=== PATIENT | female | born 2000 | race Two or more races ===

== ENCOUNTER 2024-05-06 12:26 | Emergency (ER) | payer OTHER, SELFPAY ==
[2024-05-06 12:46] VITALS: BP 133/88; PULSE 73; RESP 17; TEMP 37.1; O2SAT 100; BMI 27.1
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
[2024-05-06] MEDS: CIPROFLOXACIN HCL 250 MG TABLET 500 MG PO (13:53)
[2024-05-06] MEDS: IBUPROFEN TAB 400 MG TABLET 800 MG PO (13:53)
[2024-05-06] MEDS: SILVER SULFADIAZINE CR 1% 25 GM TUBE TOP (13:54)
[2024-05-06] MEDS: ACETAMINOPHEN w/COD 300-30 TABLET 2 TAB PO (13:54)
[2024-05-06] MEDS: DIPHTH,PERTUSS(ACELL),TET VAC 0.5 ML VIAL IMi (13:55)
== END 2024-05-06 14:05 | disposition home or self-care (01) ==
LOC: SERX 13:44
PROVIDERS: Emergency Provider Emergency Medicine
DX: T20.20XA Burn of second degree of head, face, and neck, unspecified site, initial encounter (principal); T31.0 Burns involving less than 10% of body surface; T79.9XXA Unspecified early complication of trauma, initial encounter; X10.2XXA Contact with fats and cooking oils, initial encounter; Y93.G3 Activity, cooking and baking; Y92.009 Unspecified place in unspecified non-institutional (private) residence as the place of occurrence of the external cause; Z23 Encounter for immunization
CPT/HCPCS: 90471; 90715; 99282; A9270

== ENCOUNTER 2025-04-17 21:31 | Inpatient (IN) | payer SELFPAY ==
[2025-04-17] VITALS (9 sets, daily range): BP systolic 117–131; BP diastolic 71–79; PULSE 82–125; RESP 24–99; TEMP 36.6–36.9; O2SAT 99–100; BMI 34.0
--- NOTE | 2025-04-17 22:01 | XR_ITS ---
Examination: Complete OB ultrasound greater than 14 weeks Date and time of exam: April 17, 2025, 1012 hours INDICATIONS: Onset pelvic contractions today. Findings: Viable intrauterine single fetus with single amniotic sac presentation cephalic Cardiac motion 155 bpm Placenta fundal grade 2 Umbilical cord insertion seen Amniotic fluid index 7.8 cm Ovaries obscured by bowel gas. Composite estimated gestational age based on BPD, head circumference, abdominal circumference, femur length is 35 weeks 0 days . Survey of intracranial anatomy, spinal anatomy, abdominal anatomy, four-chamber heart performed with no abnormalities identified. Impression: Viable intrauterine gestation cephalic presentation.
--- NOTE | 2025-04-17 22:06 | PD.LDHP ---
Documentation for date of: 04/17/25 OB Labor/Induct. HPI History of Present Illness Chief complaint: no PNC and Uterine contractions / gestation? Review of Systems Review of Systems Systems Reviewed: All systems reviewed, normal except as documented Past Medical History Social History SMOKING STATUS: Smoker, status unknown SUBSTANCE USE: methamphetamine SUBSTANCE LAST USED: unknown ALCOHOL LAST INTAKE: Unknown Past Medical History Comments PMH COMMENT: denies Meds Home Medications and Allergies Home Medications ?Medication ?Instructions ?Recorded ?Confirmed ?Type No Known Home Medications 04/17/25 04/17/25 History Allergies Allergy/AdvReac Type Severity Reaction Status Date / Time No Known Allergies Allergy Verified 04/17/25 23:10 OB Exam Physical Exam Vital signs: Pulse BP Pulse Ox 109 H 125/79 100 04/17/25 21:48 04/17/25 21:48 04/17/25 21:59 Narrative: Size equal to dates uterus non tender regular / contractions non tender FHR is category 1 feta presentation is vertex/per Us 35 weeks OB Results Labs 04/17/25 22:20 Labs: O positive / meth positive Impressions Impression: by US 35 weeks on 04/17/2025 and in labor , , no PNC at 35 weeks , unknown GBS on aprophylaxis / ordered betamethasone / patient progressing quickly / anticipate vaginal delivery OB Assessment & Plan Assessment and Plan (1) : Status: Acute (2) No care in current : Status: Acute (3) Substance abuse affecting , antepartum: Status: Acute Additional Plan Induction method: none Plan: anticipate NVD and GBS prophylaxis tx 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
[2025-04-17] MEDS: Ampicillin Inj 2,000 MG in SODIUM CHLORIDE 0.9% (POP) 100 ML 200 MG IV (22:19)
[2025-04-17] MEDS: RINGERS LACTATED 1000 ML 1,000 ML 100 ML IV (22:20)
[2025-04-17] MEDS: fentaNYL CIT INJ 50 mCg/ML AMP 2ML 100 MCG IVP (23:04)
[2025-04-17 23:07] LABS: Amphetamine/Metham Scrn,Ur OB Positive (Negative); Benzoylecgonine Screen, Ur OB Negative (Negative); Opiate Screen,Urine OB Negative (Negative); THC Screen,Urine OB Negative (Negative)
[2025-04-17 23:08] LABS: Amphetamines/Metham U Confirm* See Sep Rpt
[2025-04-17 23:16] LABS: Basophils # (Auto) 0.1 Thou/mm3 (0.0-0.2); Basophils % (Auto) 0 % (0-2.5); Eosinophils # (Auto) 0.2 Thou/mm3 (0.0-0.5); Eosinophils % (Auto) 1 % (0-10); Hematocrit 34.6 % (36.0-46.0); Hemoglobin 11.4 g/dL (12.0-16.0); Immature Granulocytes Auto 0.09 Thou/mm3 (0.00-0.00); Lymphocytes # (Auto) 3.6 Thou/mm3 (1.0-4.8); Lymphocytes % (Auto) 24 % (10-50); Mean Corpuscular HGB Conc 32.9 g/dl (31.0-37.0); Mean Corpuscular Hemoglobin 26.7 pg (25.0-35.0); Mean Corpuscular Volume 81 fL (80-100); Monocytes # (Auto) 1.3 Thou/mm3 (0.0-0.8); Monocytes % (Auto) 9 % (0-12); Neutrophils # (Auto) 9.9 Thou/mm3 (1.8-7.7); Neutrophils % (Auto) 66 % (37-80); Nucleated Red Blood Cell # 0.00 Thou/mm3 (0.00-0.00); Nucleated Red Blood Cell % 0 /100 WBC (0); Platelet Count 307 Thou/mm3 (140-440); RDW Standard Deviation 38.5 fL (36.4-46.3); Red Blood Count 4.27 Miln/mm3 (4.00-5.20); White Blood Count 15.1 Thou/mm3 (3.6-11.0)
[2025-04-17 23:49] LABS: HIV (1&2) Antibody Rapid Non-Reactive
[2025-04-18] VITALS (16 sets, daily range): BP systolic 104–136; BP diastolic 55–86; PULSE 76–117; RESP 16–19; TEMP 36.6–36.8; O2SAT 85–100
[2025-04-18 00:03] LABS: Hepatitis B Surface Antigen Non Reactive (Non React); Rubella, IgG Antibody Reactive (Immune)
[2025-04-18] MEDS: BETAMET ACET/BETAMET NA PH (Celestone) 6 MG/ML VIAL 12 MG IM (00:04)
[2025-04-18 00:10] LABS: Syphilis Reactive (Nonreactive)
[2025-04-18 00:11] LABS: MHATP/TP-PA* See Sep Rpt
[2025-04-18] MEDS: fentaNYL CIT INJ 50 mCg/ML AMP 2ML 100 MCG IVP (00:54)
[2025-04-18] MEDS: OXYTOCIN in NS 20 units 20 UNIT/1,000 ML BAG 125 UNIT IV (01:36)
[2025-04-18] MEDS: MINERAL OIL 30 ML UDC TOP (01:37)
[2025-04-18] MEDS: METHYLERGONOVINE INJ 0.2 MG/ML VIAL IM (01:59)
--- NOTE | 2025-04-18 02:01 | PD.LDDELS ---
Data ([place]) Data Hx Section: No Maternal Blood Type: O Pos Rubella Titre: Positive RPR: Reactive Labs: Positive: RPR, Negative: Hepatitis B and HIV and Unknown: Group Beta Strep : 1 Para: 0 Term: 0 : 0 Livin Abortions: Spontaneous & Theraputic: 0 Delivery Data ([place]) Labor Data Initiation of labor: Spontaneous Induction/Augmentation Agent: None ROM date: 04/18/25 ROM time: 01:13 Amniotic membrane rupture type: Spontaneous Amniotic fluid description: Clear Delivery Data EDC calculated by:: ultrasound Date of arrival to unit: 04/17/25 Onset of labor date: 04/18/25 Onset of labor time: 14:00 Complete dilation date: 04/18/25 Complete dilation time: 01:13 [place] delivery date: 04/18/25 delivery time: 01:34 Gestational age (weeks): 35 Placenta delivery date: 04/18/25 Placenta delivery time: 01:38 Stage 1 total time: Labor - Stage 1 Duration -767 minutes Delivered by: Ena Oscar Delivery Method Delivery method: Normal Vaginal Delivery Presentation: Vertex Anesthesia Type Anesthesia Type: None Delivery Room Medications Delivery room medications: Lidocaine (local), Methergine 0.2 mg IM, Pitocin 20 u IV and Cytotec 800 [place] Placenta Placenta delivery description: Spontaneous Placenta Disposition: Sent to Pathology cord blood collection: Cord Blood Type Episiotomy Episiotomy description: None Lacerations #1: Labial: R labial/ repaired with 2,0 vicryl on SH needle under lidocaine local EBL Estimated blood loss (ml): 180 Umbilical Cord cord description: 3 Vessels [place] Data ([place]) Data order: 1 [place]'s gender: Male weight (gms): 2555 kg 1 minute: 9 5 minutes: 9 Additional Comments Additional comments: RPR results obtained after the delivery
[2025-04-18] MEDS: DIPHENOXYLATE/ATROP SULF 1 TAB 2 TAB PO (02:16)
[2025-04-18] MEDS: CARBOPROST TROMETH INJ 250 MCG/ML VIAL IM (02:16)
[2025-04-18] MEDS: LIDOCAINE HCL 1% 20 ML VIAL INFL (02:18)
[2025-04-18] MEDS: BENZO/LANO/ALOE (Dermoplast) 60 GM CAN 1 SPRAY TOP (02:19)
[2025-04-18 03:40] LABS: Basophils # (Auto) 0.1 Thou/mm3 (0.0-0.2); Basophils % (Auto) 0 % (0-2.5); Eosinophils # (Auto) 0.0 Thou/mm3 (0.0-0.5); Eosinophils % (Auto) 0 % (0-10); Hematocrit 34.9 % (36.0-46.0); Hemoglobin 11.3 g/dL (12.0-16.0); Immature Granulocytes Auto 0.19 Thou/mm3 (0.00-0.00); Lymphocytes # (Auto) 1.3 Thou/mm3 (1.0-4.8); Lymphocytes % (Auto) 5 % (10-50); Mean Corpuscular HGB Conc 32.4 g/dl (31.0-37.0); Mean Corpuscular Hemoglobin 26.6 pg (25.0-35.0); Mean Corpuscular Volume 82 fL (80-100); Monocytes # (Auto) 0.7 Thou/mm3 (0.0-0.8); Monocytes % (Auto) 3 % (0-12); Neutrophils # (Auto) 24.5 Thou/mm3 (1.8-7.7); Neutrophils % (Auto) 92 % (37-80); Nucleated Red Blood Cell # 0.00 Thou/mm3 (0.00-0.00); Nucleated Red Blood Cell % 0 /100 WBC (0); Platelet Count 279 Thou/mm3 (140-440); RDW Standard Deviation 39.5 fL (36.4-46.3); Red Blood Count 4.25 Miln/mm3 (4.00-5.20); White Blood Count 26.8 Thou/mm3 (3.6-11.0)
[2025-04-18] MEDS: NICOTINE PATCH 21 MG/24 HR PATCH.TD24 TOP (08:08)
[2025-04-18 11:35] LABS: Alanine Aminotransferase 20 U/L (10-49); Albumin, Serum 3.7 gm/dL (3.5-5.0); Albumin/Globulin Ratio 1.7 (1.2-2.2); Alkaline Phosphatase 179 U/L (46-116); Anion Gap 11 (7-16); Aspartate Amino Transferase 34 U/L (0-34); BUN/Creatinine Ratio 7 Ratio (12-20); Bilirubin,Total 0.3 mg/dL (0.3-1.2); Blood Urea Nitrogen 5 mg/dL (9-23); Calcium 9.2 mg/dL (8.3-10.6); Calcium (Corrected) 9.4 mg/dL (8.5-10.1); Carbon Dioxide 20.2 mMol/L (20.0-31.0); Chloride 106 mMol/L (98-107); Creatinine (Component) 0.7 mg/dL (0.6-1.3); Estimated Creatinine Clearance 142.1 mL/min (>60); Globulin 2.2 gm/dL (2.3-3.5); Glucose 89 mg/dL (74-106); Osmolality,Calculated 270 (275-295); Potassium 4.7 mMol/L (3.4-5.1); Sodium 137 mMol/L (136-145); Total Protein 5.9 gm/dL (5.7-8.2); eGFR > 60 See Note
[2025-04-18 12:14] LABS: Hepatitis C Antibody Non Reactive (Non React)
[2025-04-18 17:10] LABS: Chlamydia trachomatis PCR Negative (Not Detect); Neisseria Gonorrhoeae DNA PCR Negative (Not Detect); Trichomonas Positive (Negative)
--- NOTE | 2025-04-19 02:39 | PC.NURSE ---
Pt has been very sleepy. offered pt to go see baby in nicu, she denied at this time. per pt she just wants to sleep right now. asked pt who was going to be the baby's doctor for the pku form. explained testing that needs to be done for baby. Per pt I have no idea .
[2025-04-19 03:56] VITALS: BP 119/67; PULSE 86; RESP 14; TEMP 36.8; O2SAT 98
[2025-04-19 06:06] LABS: Basophils # (Auto) 0.0 Thou/mm3 (0.0-0.2); Basophils % (Auto) 0 % (0-2.5); Eosinophils # (Auto) 0.0 Thou/mm3 (0.0-0.5); Eosinophils % (Auto) 0 % (0-10); Hematocrit 28.6 % (36.0-46.0); Hemoglobin 9.3 g/dL (12.0-16.0); Immature Granulocytes Auto 0.18 Thou/mm3 (0.00-0.00); Lymphocytes # (Auto) 3.3 Thou/mm3 (1.0-4.8); Lymphocytes % (Auto) 19 % (10-50); Mean Corpuscular HGB Conc 32.5 g/dl (31.0-37.0); Mean Corpuscular Hemoglobin 27.3 pg (25.0-35.0); Mean Corpuscular Volume 84 fL (80-100); Monocytes # (Auto) 1.3 Thou/mm3 (0.0-0.8); Monocytes % (Auto) 8 % (0-12); Neutrophils # (Auto) 12.5 Thou/mm3 (1.8-7.7); Neutrophils % (Auto) 72 % (37-80); Nucleated Red Blood Cell # 0.00 Thou/mm3 (0.00-0.00); Nucleated Red Blood Cell % 0 /100 WBC (0); Platelet Count 317 Thou/mm3 (140-440); RDW Standard Deviation 41.3 fL (36.4-46.3); Red Blood Count 3.41 Miln/mm3 (4.00-5.20); White Blood Count 17.3 Thou/mm3 (3.6-11.0)
[2025-04-19 08:30] VITALS: BP 104/67; PULSE 75; RESP 17; TEMP 36.8; O2SAT 98
[2025-04-19] MEDS: NICOTINE PATCH 21 MG/24 HR PATCH.TD24 TOP (08:34)
--- NOTE | 2025-04-19 10:23 | PD.LDPPPRG ---
Subjective Subjective Interval history: Delivery type: , patient was positive for methamphetamine use on arrival with hemorrhage, also being treated for syphilis with Bicillin Patient doing well this morning. No acute complaints. Ambulating, tolerating p.o., and voiding without difficulty. HTN/Pre-E screen negative: No CP, SOB, YING, visual changes, RUQ pain. : No Lochia: diminishing Bowel: Flatus + / BM + UOP: Voiding Exam Vital Signs Temp Pulse Resp BP Pulse Ox O2 Del Method 98.3 F 86 14 119/67 98 Room Air 04/19/25 03:56 04/19/25 03:56 04/19/25 03:56 04/19/25 03:56 04/19/25 03:56 04/19/25 03:56 Constitutional Constitutional: no acute distress Routine HEENT Exam Head: Present normocephalic and atraumatic Eye: Present EOMI and PERRL ENT: Present mucous membranes moist Routine Neck Exam Neck: Present supple and trachea midline Routine Respiratory Exam Respiratory: Present chest non-tender, lungs clear, normal breath sounds and no resp distress Routine Cardiovascular Exam Cardiovascular: Present RRR Routine Abdominal Exam Abdominal: Present soft and normoactive bowel sounds Routine Extremities Exam Extremities: Present full ROM Routine Skin Exam Skin: Present intact, dry and warm Routine Neurological Exam Neurological: Present alert, oriented X3 and CN II-XII intact Routine Psychiatric Exam Psychiatric: Present normal affect and normal thought process Objective Labs 04/19/25 05:22 04/18/25 10:19 Labs: Laboratory Results - last 24 hr 04/17/25 04/18/25 04/18/25 22:02 10:19 16:48 WBC RBC Hgb Hct MCV MCH MCHC RDW Std Deviation Plt Count Neut % (Auto) Lymph % (Auto) [place] % (Auto) Eos % (Auto) Baso % (Auto) Neut # (Auto) Lymph # (Auto) [place] # (Auto) Eos # (Auto) Baso # (Auto) Immature Gran # (Auto) Absolute Nucleated RBC Immature Gran % Nucleated RBC % Sodium 137 Potassium 4.7 Chloride 106 Carbon Dioxide 20.2 Anion Gap 11 BUN 5 L Creatinine 0.7 Estim Creat Clear Calc 142.1 eGFR > 60 BUN/Creatinine Ratio 7 L Glucose 89 Calculated Osmolality 270 L Calcium 9.2 Corrected Calcium 9.4 Total Bilirubin 0.3 AST 34 ALT 20 Alkaline Phosphatase 179 H Total Protein 5.9 Albumin 3.7 Globulin 2.2 L Albumin/Globulin Ratio 1.7 T.pallidum Ab (MHA) See Sep Rpt Chlam trachomat DNA PCR Negative Hepatitis C Antibody Non Reactive N.gonorrhoeae DNA (PCR) Negative Trichomonas DNA Probe Positive A 04/19/25 05:22 WBC 17.3 H D RBC 3.41 L Hgb 9.3 L D Hct 28.6 L MCV 84 MCH 27.3 MCHC 32.5 RDW Std Deviation 41.3 Plt Count 317 D Neut % (Auto) 72 Lymph % (Auto) 19 [place] % (Auto) 8 Eos % (Auto) 0 Baso % (Auto) 0 Neut # (Auto) 12.5 H Lymph # (Auto) 3.3 [place] # (Auto) 1.3 H Eos # (Auto) 0.0 Baso # (Auto) 0.0 Immature Gran # (Auto) 0.18 H Absolute Nucleated RBC 0.00 Immature Gran % 1 H Nucleated RBC % 0 Sodium Potassium Chloride Carbon Dioxide Anion Gap BUN Creatinine Estim Creat Clear Calc eGFR BUN/Creatinine Ratio Glucose Calculated Osmolality Calcium Corrected Calcium Total Bilirubin AST ALT Alkaline Phosphatase Total Protein Albumin Globulin Albumin/Globulin Ratio T.pallidum Ab (MHA) Chlam trachomat DNA PCR Hepatitis C Antibody N.gonorrhoeae DNA (PCR) Trichomonas DNA Probe Assessment & Plan Problem List (1) : Status: Acute (2) No care in current : Status: Acute (3) Substance abuse affecting , antepartum: Status: Acute (4) Vaginal delivery: Status: Acute Assessment and plan: 1. Continue routine /post-op care 2. Labs reviewed, cbc appropriate 3. Remove dressing/[place]ians[place] 4. Encourage to ambulate, shower 5. Encourage PO intake, breast feeding Time Spent With Patient Time: Total time spent is greater than 50% in coordination of care (as documented) at patient's floor/unit and/or counseling patient:
--- NOTE | 2025-04-19 11:50 | PC.SS ---
TILE TRIMMER submitted CWS verbal report to Linn Cortez. Written report submitted electronically to CWS. CWS report placed in patient's chart. CWS screener informed TILE TRIMMER if response is staffed as an immediate response, CWS will conduct bedside contact with the patient within 2 hours. TILE TRIMMER updated bedside nurse.
--- NOTE | 2025-04-19 14:26 | PD.LDDS ---
DS: Providers Provider Date of admission: 04/17/25 22:20 Primary care physician: Physician No Primary/Family Admitting Provider: Ena Oscar MD Attending Provider on Admission: Riky Pace MD Consults: 04/18/25 02:04 Referral Routine Comment: Attending Provider on DC: Riky Pace MD Discharging Provider: Riky Pace MD DS: Diagnosis Discharge Diagnosis (1) Vaginal delivery: Status: Acute (2) Substance abuse affecting , antepartum: Status: Acute Problem List Completed Was Problem List Reviewed/Reconciled?: Yes Summary/Hosp Course Peripartum Data Delivery Method: Normal Vaginal Delivery Episiotomy Description: None Time Spent with Patient Time attestation: Total time spent providing and/or coordinating discharge services: Exam Vital Signs Temp Pulse Resp BP Pulse Ox O2 Del Method 98.3 F 75 17 104/67 98 Room Air 04/19/25 08:30 04/19/25 08:30 04/19/25 08:30 04/19/25 08:30 04/19/25 08:30 04/19/25 08:30 Discharge Plan Plan Patient Disposition: HOME (Self Care) Patient condition on transfer: Stable Prescriptions/Referrals Prescriptions/Med Rec: New docusate sodium [Stool Softener] 100 mg capsule 100 mg PO QDAY 30 Days Qty: 30 0RF ibuprofen 600 mg tablet 600 mg PO Q6H MDD 4 PRN (Reason: fever or pain) 10 Days Qty: 40 0RF Referrals: Riky Pace MD [Physician, INFECTION CONTROL PREVENTIONIST] No Primary/Family,Physician [Primary Care Provider] Patient/Caregiver Discharge Instructions Print Language: Mongolian Stand Alone Forms: Dilia Award Info., Patient Portal Info Letter Discharge Order Discharge Orders: Discharge (Routine); Ordered 04/19/25 Ordered By: Riky Pace Planned Discharge Date 04/19/25
--- NOTE | 2025-04-19 14:33 | PC.SS ---
CERTIFIED SURGICAL FIRST ASSISTANT informed by bedside nurse that CWS is presently conducting bedside contact with the patient. CWS following up on report generated due to patient and infant testing positive for methamphetamine.
--- NOTE | 2025-04-19 15:49 | PC.SS ---
COLLECTIONS AGENT conducted bedside contact with the patient to address nursing referral indicating patient was positive for methamphetamine upon admission.? COLLECTIONS AGENT introduced self and role.? COLLECTIONS AGENT discussed basis of referral.? Patient confirmed use of methamphetamine with most recent use day of delivery.? Patient informed COLLECTIONS AGENT that she was not aware that she was .? Patient reports experiencing menstrual cycle and finding evidence of clotting.? Patient assumed that fetus had been miscarried.? Due to not knowing she was patient did not participate with care.? Patient informed COLLECTIONS AGENT that infant, [place] survivor) is her first child.? Infant delivered naturally.? Patient stated that FOB will not be involved in the rearing of the infant.? COLLECTIONS AGENT informed patient that due to positive toxicology report for both patient and infant a CWS report would be generated.? Patient acknowledged submittal of report.? Patient denies presence of current possession of anxiety or depression.? Patient stated that she experienced depression as a minor.? Patient denies history of engaging in self-harm behavior.? Patient denied current intent/plan of SI/HI.? Patient resides alone.? Patient is not aligned with WIC, SNAP or TANF.? Patient denies history of domestic violence.? Patient reports possessing ancestry but is not enrolled.? Per patient undergoing enrollment process.? Patient has access to appropriate supplies and equipment; to include a car seat.? Friend, Jenniffer; will provide transportation upon discharge.? Patient describes possessing support system consisting of parents, family and friend.? COLLECTIONS AGENT provided the patient with community resources to include Parenting Network and Warm Line.? No further intervention required at this time, social worker masters will be available to address any further concerns.? COLLECTIONS AGENT updated bedside nurse.? CWS report to be submitted.
--- NOTE | 2025-04-20 07:44 | CHAP ---
Patient was visited by a Spiritual Care Volunteer on 04/19/2025 between 0900 and 1200 and received comfort, encouragement and/or prayer. Patient also received a blessing on infant and family.
== END 2025-04-19 16:45 | disposition home or self-care (01) | DRG 806 ==
LOC: S4SX 04-18 14:04 → S4NX 04-18 14:22
PROVIDERS: Obstetrics & Gynecology; Admitting Provider Obstetrics & Gynecology; Visit Provider Obstetrics & Gynecology
DX: O60.14X0 Preterm labor third trimester with preterm delivery third trimester, not applicable or unspecified (principal); O72.1 Other immediate postpartum hemorrhage; Z37.0 Single live birth; O99.324 Drug use complicating childbirth; O98.12 Syphilis complicating childbirth; F15.10 Other stimulant abuse, uncomplicated; Z3A.35 35 weeks gestation of pregnancy; O70.0 First degree perineal laceration during delivery
CPT/HCPCS: 36415; 59409; 76805; 80053; 80307; 85025; 86703; 86762; 86780; 86803; 86850; 86900; 86901; 87340; 87491; 87591; 87661; 94762; J0290; J0561; J0702; J2210; J2590; J3010; J3490; J7120; S0191; A9270